=== PATIENT | female | born 2000 | race Caucasian/White ===

== ENCOUNTER 2023-03-05 21:52 | Emergency (ER) | payer MEDICAID ==
[~2023-03-05] VITALS: Ht 160 cm; Wt 50.0 kg
[2023-03-05 22:18] VITALS: BP 117/70; O2SAT 98
[2023-03-05 22:45] LABS: BASOPHILS % 0.2 % (0.0-2.0); EOSINOPHILS % 1.9 % (0.0-5.0); HEMATOCRIT. 40.5 % (36.0-48.0); LYMPHOCYTES % 21.3 % (20.0-50.0); MEAN CORPUSCULAR HEMOGLOBIN 30.5 pg (28.0-32.0); MEAN CORPUSCULAR HGB CONC 34.6 g/dL (31.0-37.0); MEAN CORPUSCULAR VOLUME 88.4 fL (81.0-99.0); MEAN PLATELET VOLUME 9.2 fl (7.4-10.4); MONOCYTES % 8.8 % (2.0-8.0); NEUTROPHILS % 67.8 % (40.0-76.0); PLATELET 218 x1000/uL (130-400); RED BLOOD CELL COUNT 4.59 mill/uL (4.2-5.4); RED CELL DISTRIBUTION WIDTH 13.1 % (11.6-14.6); WHITE BLOOD COUNT 4.6 x1000/uL (4.5-11.0)
[2023-03-05 23:00] LABS: CHLORIDE 103 mEq/L (98-107); INDEX HEMOLYSI 1 (1-3); INDEX ICTERIC 1 (1-4); INDEX LIPEMIC 1 (1-3); POTASSIUM 3.4 mEq/L (3.5-5.1); SODIUM 138 mEq/L (136-145)
[2023-03-05 23:09] LABS: ALANINE AMINOTRANSFERASE 17 IU/L (13-61); ASPARTATE AMINOTRANSFERASE 13 IU/L (15-37); BILIRUBIN TOTAL 0.9 mg/dL (0.1-1.0); CALCIUM 8.7 mg/dL (8.5-10.1); CARBON DIOXIDE 28 mEq/L (21-32); CREATININE 0.7 mg/dL (0.6-1.3); GLUCOSE 100 mg/dL (70-105); PROTEIN TOTAL 7.9 g/dL (6.0-8.3); UREA NITROGEN BLOOD 14 mg/dL (7-21)
[2023-03-05 23:54] LABS: CLARITY URINE TURBID (CLEAR); COLOR URINE DARK YELLOW (YELLOW); GLUCOSE URINE NEGATIVE (NEGATIVE); KETONES URINE TRACE (NEGATIVE); LEUKOCYTE ESTERASE URINE 2+ (NEGATIVE); NITRITE URINE NEGATIVE (NEGATIVE); OCCULT BLOOD URINE 3+ (NEGATIVE); PROTEIN URINE TRACE (NEGATIVE); SPECIFIC GRAVITY URINE 1.024 (1.005-1.030)
[2023-03-06] MEDS ORDERED: ONDANSETRON 4MG ODT PO ONE
[2023-03-06] MEDS ORDERED: MAGNESIUM/ALUMINUM HYDROXIDE/SIMETHICONE 30ML UDC PO ONE
[2023-03-06] MEDS ORDERED: FAMO-135 MT (00:45)
[2023-03-06 01:40] LABS: SQUAMOUS EPITHELIAL CELL URINE 1+ /lpf (RARE/1+)
[2023-03-06 01:42] LABS: WBC URINE 15-25 /hpf (0-2)
[2023-03-06 01:43] LABS: RBC URINE 0-2 /hpf (0-2)
[2023-03-06 01:44] LABS: BACTERIA URINE 3+
[2023-03-06] MEDS ORDERED: CEPH500C2 MT (01:58)
[2023-03-06 02:36] VITALS: PULSE 85; RESP 16; TEMP 97.9
== END 2023-03-06 02:37 | disposition home or self-care (01) ==
LOC: ER 21:52
DX: N39.0 Urinary tract infection, site not specified (principal); R10.13 Epigastric pain; N20.0 Calculus of kidney
CPT/HCPCS: 99283; 80053; 81003; 81025; 83690; 85025; 87086; 36415; Q0162

== ENCOUNTER 2024-09-30 23:40 | Emergency (ER) | payer MEDICAID ==
[~2024-09-30] VITALS: Ht 162.6 cm; Wt 66.5 kg
[~2024-09-30 23:40] MED LIST: CEPH500C2 MT; FAMO-135 MT
[2024-09-30 23:45] VITALS: O2SAT 98
[2024-10-01 01:19] VITALS: BP 118/73; PULSE 77; RESP 19; TEMP 36.5; O2SAT 100
== END 2024-10-01 01:24 | disposition home or self-care (01) ==
LOC: ER 23:40
DX: O26.893 Other specified pregnancy related conditions, third trimester (principal); Z3A.37 37 weeks gestation of pregnancy
CPT/HCPCS: 99284; 76805; Z7610; A4606